=== PATIENT | male | born 1965 | race Caucasian/White ===

== ENCOUNTER 2017-05-05 11:36 | Emergency (ER) | payer OTHER ==
[~2017-05-05] VITALS: Ht 175.3 cm; Wt 72.8 kg
[2017-05-05] MEDS ORDERED: ULTRACET1 TABLET PO (17:19)
[2017-05-05 17:34] VITALS: BP 92/53
== END 2017-05-05 17:35 | disposition home or self-care (01) ==
LOC: EME 11:36
DX: S22.42XA Multiple fractures of ribs, left side, initial encounter for closed fracture (principal); M25.561 Pain in right knee; M25.562 Pain in left knee; M79.671 Pain in right foot; M54.5 Low back pain; V49.50XA Passenger injured in collision with unspecified motor vehicles in traffic accident, initial encounter; Y09 Assault by unspecified means; H91.90 Unspecified hearing loss, unspecified ear
CPT/HCPCS: 71101; 73564; 73630; 99281; 99285